=== PATIENT | male | born 1990 | race Caucasian/White ===

== ENCOUNTER 2020-05-08 01:51 | Emergency (ER) | payer OTHER ==
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
[2020-05-08 02:57] VITALS: BP 157/90; PULSE 90; RESP 16; TEMP 98
[2020-05-08 12:51] LABS: Hepatitis B Surface AB- Quant 36.3 mIU/mL; Hepatitis B Surface Antibody Reactive (Non-Reactive); Hepatitis C IgG Antibody Non-Reactive (Non-Reactive)
[2020-05-08 15:05] LABS: HIV 2 AB Non-Reactive (Non-Reactive); HIV AB P24 Non-Reactive (Non-Reactive); HIV P24 AG Non-Reactive (Non-Reactive)
== END 2020-05-08 03:02 | disposition home or self-care (01) ==
LOC: EC 01:51
DX: Z77.21 Contact with and (suspected) exposure to potentially hazardous body fluids (principal); S60.512A Abrasion of left hand, initial encounter; W50.0XXA Accidental hit or strike by another person, initial encounter; Y92.69 Other specified industrial and construction area as the place of occurrence of the external cause; Y99.0 Civilian activity done for income or pay
CPT/HCPCS: 36415; 86706; 86803; 87390; 99283

== ENCOUNTER 2020-07-07 20:53 | Emergency (ER) | payer OTHER, BC ==
[2020-07-07 20:59] VITALS: BP 160/98; PULSE 103; RESP 18; TEMP 97.8
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
== END 2020-07-07 22:15 | disposition home or self-care (01) ==
LOC: EC 20:53
DX: Z04.1 Encounter for examination and observation following transport accident (principal); F17.200 Nicotine dependence, unspecified, uncomplicated; V89.2XXA Person injured in unspecified motor-vehicle accident, traffic, initial encounter; Y92.410 Unspecified street and highway as the place of occurrence of the external cause; Y99.9 Unspecified external cause status; Z85.828 Personal history of other malignant neoplasm of skin
CPT/HCPCS: 99284